=== PATIENT | male | born 1935 | race Caucasian/White ===

== ENCOUNTER 2022-02-28 12:59 | Emergency (ER) | payer MEDICARE, BC ==
[~2022-02-28] VITALS: Ht 182.9 cm; Wt 103.2 kg
[~2022-02-28 12:59] MED LIST: ASPI-4 PO; LEVA15HF4 INH; LORA-512 PO; METO-539 PO; ROPI0.2540 PO
[2022-02-28 13:42] VITALS: BP 125/53
== END 2022-02-28 14:11 | disposition home or self-care (01) ==
LOC: ER 13:00
DX: S40.021A Contusion of right upper arm, initial encounter (principal); I25.10 Atherosclerotic heart disease of native coronary artery without angina pectoris; I10 Essential (primary) hypertension; J44.9 Chronic obstructive pulmonary disease, unspecified; F17.200 Nicotine dependence, unspecified, uncomplicated; Z95.0 Presence of cardiac pacemaker; Z79.82 Long term (current) use of aspirin; Z79.899 Other long term (current) drug therapy; W19.XXXA Unspecified fall, initial encounter; Y93.89 Activity, other specified; Y92.89 Other specified places as the place of occurrence of the external cause; Y99.8 Other external cause status
CPT/HCPCS: 99282; A6449